=== PATIENT | female | born 1960 | race African-American/Black ===

== ENCOUNTER 2016-09-28 10:36 | Emergency (ER) | payer OTHER ==
[~2016-09-28] VITALS: Ht 154.9 cm; Wt 88.5 kg
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
--- NOTE | 2016-09-28 11:38 | RADIOLOGY REPORT ---
EXAMINATION: LUMBOSACRAL SPINE 3 VIEWS CLINICAL INFORMATION: Low back pain after fall. COMPARISON: None. TECHNIQUE: AP, lateral, spot lateral views of the lumbosacral spine are provided. FINDINGS: There are no fractures. There is anterior displacement of L5 in relation to S1 with disc height loss at L5/S1. The lumbar vertebrae are in otherwise normal alignment. Disc heights and vertebral body heights are otherwise well-preserved. There is increased sclerosis within the facet joints of the lower lumbar spine. IMPRESSION: Anterior displacement of L5 in relation to S1 with moderate disc height loss at L5/S1. 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 Alternatively, this appearance could be loss control representative of pseudolisthesis due to degenerative change within the lower lumbar spine. Consider correlation with shallow bilateral oblique views. Regardless, this is likely a chronic appearance. There is no evidence for acute injury.
--- NOTE | 2016-09-28 11:39 | RADIOLOGY REPORT ---
EXAMINATION: LEFT ANKLE 3 VIEWS CLINICAL INFORMATION: Medial left ankle pain. COMPARISON: None. TECHNIQUE: AP, lateral, oblique views of the left ankle were obtained. FINDINGS: There are no fractures or dislocations. There is no significant soft tissue swelling. No ankle joint effusion is identified. There is a small plantar surface calcaneal spur. IMPRESSION: No evidence for acute injury to the left ankle. Small plantar surface calcaneal spur.
[2016-09-28] MEDS ORDERED: TYLENOL WITH C1 EACH PO (11:57)
== END 2016-09-28 12:02 ==
LOC: ERH 10:36
DX: S39.92XA Unspecified injury of lower back, initial encounter (principal); S93.402A Sprain of unspecified ligament of left ankle, initial encounter; W00.0XXA Fall on same level due to ice and snow, initial encounter
CPT/HCPCS: 72100; 73610-LT; 96372; J1885